=== PATIENT | female | born 2000 | race Caucasian/White ===

== ENCOUNTER 2021-02-03 09:59 | Emergency (ER) | payer BC ==
[~2021-02-03] VITALS: Ht 167.6 cm; Wt 59.0 kg
[2021-02-03 11:31] VITALS: BP 116/82
== END 2021-02-03 11:31 | disposition home or self-care (01) ==
LOC: M.ERS 09:59
DX: J06.9 Acute upper respiratory infection, unspecified (principal); Z20.822 Contact with and (suspected) exposure to COVID-19